=== PATIENT | male | born 1995 | race Caucasian/White ===

== ENCOUNTER 2017-05-13 08:16 | Inpatient (IN) | payer BC, OTHER ==
[~2017-05-13] VITALS: Ht 177.8 cm; Wt 74.8 kg
--- NOTE | 2017-05-14 00:30 | NUR ---
Pre admission assessment Pt seen in intake office. Pt appears mildly intoxicated upon admission but in stable condition with V/S WNL. Policies on medication disposal explained to and understood by patient. No s/s of distress noted at this time. Respirations even and unlabored. Will admit to unit. Will continue to monitor.
[2017-05-14] MEDS ORDERED: ONDANSETRON ODT 4 MG TAB.RAPDIS SL PRN (00:45)
[2017-05-14] MEDS ORDERED: LOPERAMIDE HCL 2 MG CAPSULE PO PRN ×2 (00:45)
[2017-05-14] MEDS ORDERED: IBUPROFEN 400 MG TABLET PO PRN (00:45)
[2017-05-14] MEDS ORDERED: ACETAMINOPHEN 325 MG TABLET PO PRN (00:45)
[2017-05-14] MEDS ORDERED: MAG HYDROX/AL HYDROX/SIMETH 30 ML LIQUID UDC PO PRN (00:45)
[2017-05-14] MEDS ORDERED: ONDANSETRON 4 MG/2 ML VIAL IM PRN (00:45)
[2017-05-14] MEDS ORDERED: MAGNESIUM HYDROXIDE 30 ML LIQUID UDC PO PRN (00:45)
[2017-05-14] MEDS ORDERED: diphenhydrAMINE 50 MG CAPSULE PO PRN (00:45)
[2017-05-14] MEDS ORDERED: METHOCARBAMOL 750 MG TABLET PO PRN (00:45)
[2017-05-14] MEDS ORDERED: MIRALAX 17 GM POWD.PACK PO PRN (00:45)
[2017-05-14] MEDS ORDERED: HYDROXYZINE PAMOATE 25 MG CAPSULE PO PRN (00:45)
[2017-05-14] MEDS ORDERED: DICYCLOMINE HCL 20 MG TABLET PO PRN (00:45)
[2017-05-14] MEDS ORDERED: CLONIDINE HCL 0.1 MG TABLET PO PRN (00:45)
[2017-05-14] MEDS ORDERED: BUPRENORPHINE HCL 2 MG TAB.SUBL SL PRN (00:45)
[2017-05-14 00:55] VITALS: BP 128/64
--- NOTE | 2017-05-14 00:55 | NUR ---
Admission note Pt is a 21 yo male, A+Ox4, presenting to [facility] for Opiate/Meth dependence. Pt has Allergies to Prednisone and Pseudoephedrine, is on Full code status, and on Regular diet. Pt is 5'10" in height and 165 LBS in weight. Pt has medical HX of Appendectomy, Asthma, Hep C+, Anxiety, Depression, ADD, MRSA, Ectodermal Dysplasia, intermittent explosive disorder, and Nasal blood vessel cauterization. Pt has family HX of DM for father, and Ectodermal Dysplasia from Mother. Pt has a Primary Care Provider named Casi Olguin. Pt has been using Heroin IV for 6 years (1.5 months currently), has reached a level of 1gm-1.5gm/daily, and last dose was 1gm on 05-13-17 @1899. Pt has been using Methamphetamine IV for 6 years (1.5 months currently), has reached a level of 1gm-1.5gm/daily, and last dose was 1gm on 05-13-17 @1899. Pt has no home medications. Pt has HX of previous Detox/Rehab for 21 days @ [facility] in January 2017. This was the patients last time sober. Pt states that he has not been a cigarette smoker for years now. Pt appears mildly intoxicated but in stable condition with V/S WNL. No s/s of distress noted at this time. Respirations even and unlabored. Will continue to monitor.
[2017-05-14 01:40] LABS: *AMPHETAMINE, URINE POSITIVE (NEGATIVE); *BARBITURATE, URINE NEGATIVE (NEGATIVE); *CANNABINOID, URINE POSITIVE (NEGATIVE); *COCCAINE, URINE NEGATIVE (NEGATIVE); *OPIATE, URINE POSITIVE (NEGATIVE); *PHENCYCLIDINE SCREEN,URINE NEGATIVE (NEGATIVE)
[2017-05-14 01:46] LABS: BASOPHILS # (AUTO) 0.1 K/uL (0.0-8.0); BASOPHILS % (AUTO) 1.3 % (0.0-2.0); EOSINOPHILS # (AUTO) 0.7 K/uL (0.0-0.7); HEMATOCRIT 45.2 % (40-50); HEMOGLOBIN 14.8 G/DL (14.0-18.0); LYMPHOCYTES # (AUTO) 2.9 K/UL (0.8-4.8); LYMPHOCYTES % (AUTO) 37.7 % (20.5-51.5); MEAN CORPUSCULAR HEMOGLOBIN 27.1 UUG (27.0-31.0); MEAN CORPUSCULAR HGB CONC 33 g/dL (32.0-37.0); MEAN CORPUSCULAR VOLUME 82.7 FL (82.0-92.0); MONOCYTES # (AUTO) 0.6 K/UL (0.1-1.30); MONOCYTES % (AUTO) 7.2 % (0.0-11.0); NEUTROPHILS # (AUTO) 3.5 K/UL (1.8-8.9); NEUTROPHILS % (AUTO) 44.8 % (38.5-71.5); PLATELET COUNT (AUTO) 359 K/UL (150-450); RED BLOOD CELL COUNT(AUTO) 5.47 MIL/UL (4.7-6.1); WHITE BLOOD COUNT (AUTO) 7.8 K/UL (4.0-11.2)
[2017-05-14 02:01] LABS: ETHANOL < 3 MG/DL (0-0)
[2017-05-14 02:18] LABS: ALANINE AMINOTRANSFERASE 51 U/L (16-63); ALKALINE PHOSPHATASE 65 U/L (50-136); AMYLASE 45 U/L (25-115); ASPARTATE AMINOTRANSFERASE 32 U/L (15-37); BILIRUBIN,TOTAL 0.4 mg/dL (0.2-1.0); CARBON DIOXIDE 33 mmol/L (21-32); CHLORIDE 101 mmol/L (98-107); CREATININE 0.9 mg/dL (0.6-1.3); GLUCOSE 99 mg/dL (74-106); LIPASE 111 U/L (73-393); MAGNESIUM 2.1 mg/dL (1.8-2.4); POTASSIUM 3.8 mmol/L (3.5-5.1); TOTAL PROTEIN, SERUM 7.8 g/dL (6.4-8.2); UREA NITROGEN, BLOOD 7 mg/dL (7-18)
[2017-05-14 02:29] LABS: THYROID STIMULATING HORMONE 1.255 mIU/mL (0.358-3.740)
--- NOTE | 2017-05-14 02:33 | NUR ---
PRN Maalox Pt c/o heartburn and requested for PRN Maalox. Medication given and tolerated well. Will reassess within 1 HR. Will continue to monitor.
[2017-05-14] MEDS ORDERED: MAG HYDROX/AL HYDROX/SIMETH 30 ML LIQUID UDC ONE (02:38)
--- NOTE | 2017-05-14 03:30 | NUR ---
PRN Maalox Reassessment Medication effective. Pt is resting well in bed. No s/s of ASE/distress noted at this time. Respirations even and unlabored. Will continue to monitor.
[2017-05-14 04:15] VITALS: BP 115/62
--- NOTE | 2017-05-14 06:57 | NUR ---
End of shift note Pt is a 21 yo male, A+Ox4, presenting to [facility] for Opiate/Meth dependence. Pt has Allergies to Prednisone and Pseudoephedrine, is on Full code status, and on Regular diet. Pt has HX of Appendectomy, Asthma, Hep C+, Anxiety, Depression, ADD, MRSA, Ectodermal Dysplasia, intermittent explosive disorder, and Nasal blood vessel cauterization. Pt is on PRN medications until further evaluation from MD in AM. Pt was given PRN Maalox @0233. Pt slept for a total of 4 HRS. Last COWS: 2 @0400. No s/s of distress noted at this time. Respirations even and unlabored. Will endorse to day shift nurse.
--- NOTE | 2017-05-14 07:48 | NUR ---
START OF SHIFT NOTE: Received report from night warehouse manager nurse. Pt is a 21 yo male, admitted 05-13-17 for Opiate/Meth dependence. Pt on prn meds only at this time. Pt alert and oriented X4. Color good, skin warm and dry. Respirations even and unlabored. Resting in bed. Safety precautions observed. Call light within reach. Will continue to monitor.
[2017-05-14 08:30] VITALS: BP 115/62
[2017-05-14] MEDS: MULTIVITAMINS,THERAPEUTIC TABLET PO SCH (08:41)
[2017-05-14] MEDS ORDERED: BUPRENORPHINE HCL 2 MG TAB.SUBL SL ONE (11:30)
--- NOTE | 2017-05-14 11:45 | NUR ---
Subutex 2mg sl X1 for COWS 8
--- NOTE | 2017-05-14 12:10 | NUR ---
Pt staes feels improved after Subutex 2mg X1
[2017-05-14] MEDS: BUPRENORPHINE HCL 2 MG TAB.SUBL SL SCH ×3 (12:50→21:19)
[2017-05-14 12:52] VITALS: BP 120/62
--- NOTE | 2017-05-14 12:52 | NUR ---
VSS Subutex taper started. COWS 3
--- NOTE | 2017-05-14 17:07 | NUR ---
VSS COWS 2 C/o anxiety only
[2017-05-14 17:22] VITALS: BP 104/64
--- NOTE | 2017-05-14 18:45 | NUR ---
END OF SHIFT NOTE: Report given to fast food shift lead nurse. Pt is a 21 yo male, admitted 05-13-17 for Opiate/Meth dependence. Pt placed on a 5 day Subutex taper. Tolerating well. Pt alert and oriented X4. Color good, skin warm and dry. Respirations even and unlabored. Vital signs have remained stable throughout shift . Last COWS 2 @ 1700. Safety precautions observed. Call light within reach.
--- NOTE | 2017-05-14 19:07 | NUR ---
Start of shift note Received report from day shift nurse. Pt is a 21 yo male, A+Ox4, presenting to [facility] for Opiate/Meth dependence. Pt has Allergies to Prednisone and Pseudoephedrine, is on Full code status, and on Regular diet. Pt has HX of Appendectomy, Asthma, Hep C+, Anxiety, Depression, ADD, MRSA, Ectodermal Dysplasia, intermittent explosive disorder, and Nasal blood vessel cauterization. Pt is on Fall precautions. Pt is on 5 day Subutex taper, tolerated well. No s/s of distress noted at this time. Respirations even and unlabored. Will continue to monitor.
[2017-05-14 20:50] VITALS: BP 105/63
[2017-05-14] MEDS: GABAPENTIN 300 MG CAPSULE PO SCH (21:19)
[2017-05-15 00:46] VITALS: BP 108/68
[2017-05-15 04:16] VITALS: BP 112/71
--- NOTE | 2017-05-15 07:00 | NUR ---
End of shift note Pt is a 21 yo male, A+Ox4, presenting to [facility] for Opiate/Meth dependence. Pt has Allergies to Prednisone and Pseudoephedrine, is on Full code status, and on Regular diet. Pt has HX of Appendectomy, Asthma, Hep C+, Anxiety, Depression, ADD, MRSA, Ectodermal Dysplasia, intermittent explosive disorder, and Nasal blood vessel cauterization. Pt is on 5 day Subutex taper, tolerated well. Pt slept for a total of 9 HRS. Last COWS: 2 @0400. No s/s of distress noted at this time. Respirations even and unlabored. Will endorse to day shift nurse.
[2017-05-15 07:07] LABS: HEPATITIS B SURFACE AG Negative (Negative)
--- NOTE | 2017-05-15 07:55 | NUR ---
START OF SHIFT Rcvd endorsement from ongoing nurse, client is in room,he is a/o x4, he presents with anxious mood, flat affect, he reports not sleeping well, chills, stomach cramps, and fatigue. Client denies any N/V/D or SI/HI. Scattered dry scabs at chest and back, x 1 at neck site, encouraged client to not pick at them, he verbalized understanding. Encouraged client to increase fluid intake to facilitate detox. Encourage client to attend group therapy for skills to maintain sobriety. Client is a 21 yo male admitted for withdrawal from heroin. He is on 5 day Subutex taper, tolerating well. Last COWS 2 @ 0400. He reports allergy to Prednisone, pseudoephedrine, full code, regular diet. Client had an uneventful night, he slept 9 hrs. Client denies any history of withdrawal-induced seizure. He is on seizure precautions. Call light within reach. Side rails up x2, bed locked and in low position.
[2017-05-15 08:53] VITALS: BP 116/51
[2017-05-15] MEDS: BUPRENORPHINE HCL 2 MG TAB.SUBL SL SCH ×3 (08:59→20:33)
[2017-05-15] MEDS: GABAPENTIN 300 MG CAPSULE PO SCH ×3 (08:59→20:33)
[2017-05-15] MEDS: MULTIVITAMINS,THERAPEUTIC TABLET PO SCH (08:59)
[2017-05-15] MEDS ORDERED: TUBERCULIN,PURIF.PROT.DERIV. 5 TU/0.1 ML TEST ID ONE (09:00)
--- NOTE | 2017-05-15 09:00 | NUR ---
TB test administered to L forearm, client tolerated well.
--- NOTE | 2017-05-15 10:33 | NUR ---
Client was encouraged to attend groups. He responded that he wanted to sleep but would try when he felt better.
[2017-05-15 12:45] VITALS: BP 110/78
[2017-05-15] MEDS: BACLOFEN 10 MG TABLET PO SCH ×2 (14:37→20:33)
--- NOTE | 2017-05-15 14:55 | NUR ---
Patient refused 1500 dose of baclofen, stating he felt it would make him too drowsy for dinner. Patient informed next dose time of 2100 and patient stated understanding.
[2017-05-15 16:00] VITALS: BP 93/59
--- NOTE | 2017-05-15 17:58 | NUR ---
Unable to reassess Clonidine 0.1mg, Robaxin 750mg and Motrin 600mg, client is in a catatonic state. Will continue to monitor. Addendum: 05/15/17 at 1915 by KRUNAL KENNY RN wrong client
--- NOTE | 2017-05-15 18:00 | NUR ---
Patient states sleepy with subutex dose. COWS score 2. Vitals stable.
--- NOTE | 2017-05-15 19:19 | NUR ---
END OF SHIFT Endorsed client to incoming nurse, Client is a 21 yo male admitted for withdrawal from heroin. He is on 5 day Subutex taper, tolerating well. Last COWS 2 @ 1600. He reports allergy to Prednisone, pseudoephedrine, full code, regular diet. Client had an uneventful day. Adequate PO intake 2855mL, void x 6. Client was not compliant with group therapy, d/t withdrawal symptoms. Client denies any history of withdrawal-induced seizure. He is on seizure precautions. Call light within reach. Side rails up x2, bed locked and in low position.
--- NOTE | 2017-05-15 19:45 | NUR ---
START OF SHIFT Received report from day shift nurse. Pt is lying in bed resting. He is a 21 yo male admitted to [facility] on 05/14 for opiate dependence. He is A&O and ambulatory. Allergic to pseudophedrine and prednisone, full code status, regular diet. He has a PMH of asthma, hepatitis C, ectodermal dysplasia, appendectomy, intermittent explosive disorder, ADD, anxiety, and depression. On admission pt reported using heroin IV 1-1.5 grams per day and methamphetamine 1-1.5 grams per day. 5 day subutex taper started on 05/14. He is compliant with treatment. Subutex is working well to manage withdrawal symptoms. He reports feeling tired. Fall precautions in place. Bed is down with call light in reach.
[2017-05-15 20:00] VITALS: BP 107/61
[2017-05-15] MEDS: CLONIDINE HCL 0.1 MG TABLET PO SCH (21:00)
[2017-05-16] VITALS: BP 107/61
--- NOTE | 2017-05-16 04:00 | NUR ---
0400 Vitals refused/COWS deferred Pt refused to be woken for 0400 vital signs. He is lying in bed resting with eyes closed. Respirations even and unlabored. CIWA and COWS ordered Q4HWA. Safety measures in place.
--- NOTE | 2017-05-16 07:25 | NUR ---
END OF SHIFT Report provided day shift nurse. Pt is lying in bed resting. He is a 21 yo male admitted to [facility] on 05/14 for opiate dependence. He is A&O and ambulatory. Allergies to pseudophedrine and prednisone, full code status, regular diet. He has a PMH of asthma, hepatitis C, ectodermal dysplasia, appendectomy, intermittent explosive disorder, ADD, anxiety, and depression. Upon admission pt admitted to using heroin IV 1-1.5 grams per day and methamphetamine 1-1.5 grams per day. 5 day subutex taper started on 05/14. No PRN medications administered. Last COWS was 2. He drank 950mL and slept for [address] hours[address] Fall precautions in place. Bed is down with call light in reach.
[2017-05-16 08:34] VITALS: BP 100/63
[2017-05-16] MEDS: CLONIDINE HCL 0.1 MG TABLET PO SCH ×2 (09:00→21:00)
[2017-05-16] MEDS ORDERED: BUPRENORPHINE HCL 2 MG TAB.SUBL SL SCH (09:00)
[2017-05-16] MEDS: MULTIVITAMINS,THERAPEUTIC TABLET PO SCH (09:03)
[2017-05-16] MEDS: BACLOFEN 10 MG TABLET PO SCH ×2 (09:03→14:28)
[2017-05-16] MEDS: GABAPENTIN 300 MG CAPSULE PO SCH ×2 (09:03→14:28)
[2017-05-16 12:54] VITALS: BP 104/58
[2017-05-16] MEDS: BUPRENORPHINE HCL 2 MG TAB.SUBL SL SCH ×2 (14:28→21:06)
[2017-05-16 16:55] VITALS: BP 98/58
--- NOTE | 2017-05-16 19:25 | NUR ---
END OF SHIFT Endorsed client to incoming nurse, Client is a 21 yo male admitted for withdrawal from heroin. He is on 5 day Subutex taper, tolerating well. Last COWS 5 @ 1600. He reports allergy to Prednisone, pseudoephedrine, full code, regular diet. Client had an uneventful day. Adequate PO intake 2960mL, void x 4. Client was not compliant with group therapy, d/t withdrawal symptoms. Client denies any history of withdrawal-induced seizure. He is on seizure precautions. Call light within reach. Side rails up x2, bed locked and in low position.
--- NOTE | 2017-05-16 19:35 | NUR ---
START OF SHIFT Received report from day shift nurse. Pt is lying in bed resting. Patient is a 21 year old male admitted to [facility] on 05/14/17 for opiate dependence. He is on a 5 day Subutex taper. Last COWS 5. Patient has allergy to: pseudoephedrine and prednisone, full code, regular diet. He has a PMH of asthma, hepatitis C, ectodermal dysplasia, appendectomy, intermittent explosive disorder, ADD, anxiety, and depression. Patient reports using heroin IV 1-1.5 grams per day and methamphetamine 1-1.5 grams per day. He is compliant with treatment, isolative, and in bed much of day. Denies SI or HI. Denies current depression. Fall precautions in place. Bed is in lowest locked position, with call light in reach.
[2017-05-16 20:00] VITALS: BP 113/58
[2017-05-16 20:30] VITALS: BP 98/62
--- NOTE | 2017-05-16 21:00 | NUR ---
Medication Non administered Clonidine 0.1 mg PO non administered at 2100 due to decreased BP below parameters.
[2017-05-16] MEDS: BACLOFEN 20 MG TABLET PO SCH (21:06)
[2017-05-16] MEDS: GABAPENTIN 400 MG CAPSULE PO SCH (21:06)
--- NOTE | 2017-05-17 | NUR ---
COWS DEFERRED VITAL SIGNS REFUSED PATIENT IN BED WITH EYES VCLOSED RESTING COMFORTABLY AT 0000 PATIENT REFUSED VITAL SIGN ASSESSMENT RESPIRATIONS 16, BREATHING UNLABORED AND EVEN. COWS DEFERRED FOR SLEEP.
--- NOTE | 2017-05-17 04:00 | NUR ---
COWS DEFERRED VITAL SIGNS REFUSED PATIENT IN BED WITH EYES CLOSED RESTING COMFORTABLY AT 0400 RESPIRATIONS 16, BREATHING UNLABORED AND EVEN. COWS DEFERRED FOR SLEEP. REFUSED VITAL SIGNS
--- NOTE | 2017-05-17 06:52 | NUR ---
End of shift Report given to AM nurse. Patient is a 21 year old male admitted to [facility] on 05/14/17 for opiate dependence. He is on a 5 day Subutex taper. Last COWS 6. Clonidine 0.1 mg PO non administered at 2100 due to BP below parameters on two occasions. Patient has allergies to pseudoephedrine and prednisone. He is a full code and on a regular diet. He has a PMH of asthma, hepatitis C, ectodermal dysplasia, appendectomy, intermittent explosive disorder, ADD, anxiety, and depression. Patient reports using heroin IV 1-1.5 grams per day and methamphetamine 1-1.5 grams per day. He is compliant with treatment, and active on unit ambulating ad-tyree. Patient slept a total of 10 hours. Intake 250 ML voided 0. Fall precautions in place. Bed is in lowest locked position, with call light in reach.
--- NOTE | 2017-05-17 07:27 | NUR ---
START OF SHIFT NOTE: Received report from shift commander nurse. Pt is a 21 yo male, admitted 05-13-17 for Opiate/Meth dependence. Pt is on a 5 day Subutex taper. Tolerating well. Pt alert and oriented X4. Color good, skin warm and dry. Respirations even and unlabored. Resting in bed. Safety precautions observed. Call light within reach. Will continue to monitor.
[2017-05-17 08:07] VITALS: BP 94/60
[2017-05-17] MEDS: CLONIDINE HCL 0.1 MG TABLET PO SCH ×2 (08:09→20:49)
[2017-05-17] MEDS: MULTIVITAMINS,THERAPEUTIC TABLET PO SCH (09:04)
[2017-05-17] MEDS: GABAPENTIN 400 MG CAPSULE PO SCH ×3 (09:04→20:44)
[2017-05-17] MEDS: BACLOFEN 20 MG TABLET PO SCH ×3 (09:04→20:44)
[2017-05-17] MEDS: BUPRENORPHINE HCL 2 MG TAB.SUBL SL SCH ×3 (09:05→20:44)
--- NOTE | 2017-05-17 09:21 | NUR ---
VSS COWS 2 TB test read LFA negative.
[2017-05-17 12:43] VITALS: BP 92/50
--- NOTE | 2017-05-17 15:00 | NUR ---
VSS COWS 2 Resting in bed. Encouraged to attend group.
[2017-05-17 17:02] VITALS: BP 96/58
--- NOTE | 2017-05-17 18:40 | NUR ---
END OF SHIFT NOTE: Report given to date night caregiver nurse. Pt is a 21 yo male, admitted 05-13-17 for Opiate/Meth dependence. Pt is on a 5 day Subutex taper. Tolerating well. Pt alert and oriented X4. Color good, skin warm and dry. Respirations even and unlabored. Vital signs have remained stable throughout shift. Last COWS 2 @ 1500.Resting in bed. Safety precautions observed. Call light within reach.
--- NOTE | 2017-05-17 19:32 | NUR ---
Start of Shift Report received from AM nurse. Patient is a 21 year old male admitted to [facility] on 05/14/17 for opiate dependence. He is on a 5 day Subutex taper. Last COWS 2. Vital signs stable. Patient has allergies to pseudoephedrine and prednisone. He is a full code and on a regular diet. He has a PMH of asthma, hepatitis C, ectodermal dysplasia, appendectomy, intermittent explosive disorder, ADD, anxiety, and depression. Patient reports using heroin IV 1-1.5 grams per day and methamphetamine 1-1.5 grams per day. He is compliant with treatment, isolative most of day in room. Went downstairs to eat dinner. Fall precautions in place. Bed is in lowest locked position, with call light in reach.
[2017-05-17 20:00] VITALS: BP 105/61
--- NOTE | 2017-05-17 20:53 | NUR ---
MED NON ADMINISTERED 2100 dose of Clonidine 0.1mg PO non administered due to < BP 105/61 falling below parameters for administration.
--- NOTE | 2017-05-18 | NUR ---
COWS deferred/VS refused PAtient in bed with eyes closed refused vital signs at 0000. COWS deferred for sleep. Patient resting with eyes closed, breathing even and unlabored. Respirations 16.
--- NOTE | 2017-05-18 04:09 | NUR ---
COWS deferred/VS refused PAtient in bed with eyes closed refused vital signs at 0400. COWS deferred for sleep. Patient resting with eyes closed, breathing even and unlabored. Respirations 16.
--- NOTE | 2017-05-18 06:53 | NUR ---
End of Shift Report Endorsement to AM nurse Patient is a 21 year old male admitted on 05-13-17 for opiate detox. Patient also with history of Methamphetamine abuse. Patient is on a 5 day Subutex taper. Tolerating well without noted complications. Vital signs remain stable. Patient with last COWS 4. Patients dose of clonidine at 2100 non administered due to b/p falling below parameter for administration. Patient remains isolated in his room most of shift sleeping on/off. Did get up x 2 on unit for snacks. Denies SI or HI Past psychiatric history of Anxiety, depression, ADD, and intermittent explosive D/O. His affect is flat,he is guarded and not forthcoming with information. Pleasant upon approach. Total intake for shift 1250 ml out put 3 voids Total sleep 9 [address] measures [address]. Call light within reach.
--- NOTE | 2017-05-18 07:35 | NUR ---
START OF SHIFT NOTE: Received report from night stocker nurse. Pt is a 21 yo male, admitted 05-13-17 for Opiate/Meth dependence. Pt is on a 5 day Subutex taper. Tolerating well. Pt alert and oriented X4. Color good, skin warm and dry. Respirations even and unlabored. Resting in bed. Safety precautions observed. Call light within reach. Will continue to monitor.
[2017-05-18 08:34] VITALS: BP 101/60
[2017-05-18] MEDS: CLONIDINE HCL 0.1 MG TABLET PO SCH ×2 (08:42→20:39)
[2017-05-18] MEDS: BUPRENORPHINE HCL 2 MG TAB.SUBL SL SCH ×2 (08:56→20:36)
[2017-05-18] MEDS: GABAPENTIN 400 MG CAPSULE PO SCH ×3 (08:56→20:36)
[2017-05-18] MEDS: BACLOFEN 20 MG TABLET PO SCH ×3 (08:56→20:36)
[2017-05-18] MEDS: MULTIVITAMINS,THERAPEUTIC TABLET PO SCH (08:56)
[2017-05-18] MEDS ORDERED: BUPRENORPHINE HCL 2 MG TAB.SUBL SL SCH (09:00)
[2017-05-18 12:23] VITALS: BP 98/57
[2017-05-18 17:27] VITALS: BP 98/57
--- NOTE | 2017-05-18 18:41 | NUR ---
END OF SHIFT NOTE: Report given to assistant casino shift manager nurse. Pt is a 21 yo male, admitted 05-13-17 for Opiate/Meth dependence. Pt is on a 5 day Subutex taper. Tolerating well. Pt alert and oriented X4. Color good, skin warm and dry. Respirations even and unlabored. Vital signs have remained stable throughout shift. Last COWS 0 @ 1500. Resting in bed. Safety precautions observed. Call light within reach.
--- NOTE | 2017-05-18 19:30 | NUR ---
Start of Shift: Received patient in bed, awake, alert and oriented x4. Pleasant upon approach. Good eye contact. Calm and cooperative with care. Speech is clear, normal tone and able to make his needs known. Denies SI/HI/AVH. Patient admitted for opiate/meth dependence. On a 5 day Subutex taper. Tolerating well. Will continue to monitor behavior and medication effectiveness while MD titrate medication.
[2017-05-18 20:41] VITALS: BP 102/62
--- NOTE | 2017-05-19 00:57 | NUR ---
Patient asleep. Respiration even and unlabored. Unable to assessed COWS at this time. Addendum: 05/19/17 at 0058 by ARMAND LA RN Amended: Links added.
[2017-05-19 00:58] VITALS: BP 96/48
--- NOTE | 2017-05-19 04:26 | NUR ---
Patient asleep. Respiration even and unlabored. Refused COWS at this time. Addendum: 05/19/17 at 0428 by ARMAND LA RN Amended: Links added.
[2017-05-19 04:34] VITALS: BP 94/52
--- NOTE | 2017-05-19 06:23 | NUR ---
End of shift Notes: Patient remained calm and and cooperative. However, still isolative to self. Participated in ADL's Alert and oriented x4. Slept 10 hours. Compliant with medication and tolerated well. Remained free from injury. Encouraged to verbalize feelings and concerns. No behavior issues. Denies SI/HI/AVH.
--- NOTE | 2017-05-19 07:55 | NUR ---
START OF SHIFT NOTE Received report from weight shifter nurse, 21 year old male admitted for Opiate/Meth dependence. Pt cont on a 5 day Subutex taper. Pt did not receive any PRN medication per night nurse, last COWS1, slept for 10 hours. Received pt alert awake oriented x4 in stable condition. Skin warm and dry, Respirations even and unlabored. All Safety measures in place, Call light within reach. Will continue to monitor.
[2017-05-19 08:00] VITALS: BP 102/64
[2017-05-19] MEDS: GABAPENTIN 400 MG CAPSULE PO SCH ×3 (08:43→21:12)
[2017-05-19] MEDS: MULTIVITAMINS,THERAPEUTIC TABLET PO SCH (08:44)
[2017-05-19] MEDS: BACLOFEN 20 MG TABLET PO SCH ×3 (08:44→21:11)
[2017-05-19] MEDS: CLONIDINE HCL 0.1 MG TABLET PO SCH ×2 (08:45→21:11)
[2017-05-19] MEDS ORDERED: BUPRENORPHINE HCL 2 MG TAB.SUBL SL SCH (09:00)
[2017-05-19 12:00] VITALS: BP 104/60
[2017-05-19 16:00] VITALS: BP 103/56
[2017-05-19] MEDS ORDERED: BACL20TA PO (16:00)
[2017-05-19] MEDS ORDERED: DICY20TA28 PO (16:00)
[2017-05-19] MEDS ORDERED: GABA-536 PO (16:00)
[2017-05-19] MEDS ORDERED: HYDR-3895 PO (16:00)
[2017-05-19] MEDS ORDERED: DIPH50CA37 PO (16:00)
[2017-05-19] MEDS ORDERED: CLON0.1T14 PO (16:00)
[2017-05-19] MEDS ORDERED: IBUP-1953 PO (16:04)
--- NOTE | 2017-05-19 18:59 | NUR ---
END OF SHIFT NOTE Pt completed his Subutex taper tolerated well. Pt attended some groups and activities. Vital signs WNL. Skin intact warm and dry to touch. Pt scheduled for discharge in AM. Picture taken and placed in the chart. Pt remained complaint with plan of care. Encourage PO fluids as tolerated. All safety measures in place, Call light within reach. Pt endorsed to night nurse in stable condition.
[2017-05-19 20:00] VITALS: BP 136/61
--- NOTE | 2017-05-19 20:00 | NUR ---
1999 Patient received awake, alert and sitting up on his bed. Patient responds to nurse's greeting and introduction with eye contact and slightly flat " Hi". Patient states that he has just returned from [employer] [facility] in recreation room. Patient states that he has been regularly attending [employer] groups and eating his Regular diet meal trays and drinking various fluids ad tyree with no gastric issues so far. Patient states further that he is being discharged tomorrow and may not be able to sleep well tonight. Patient informed that PRN sleep medication is available for him, whenever he asks for it. Patient states, " Okay". Patient denies any pain or other discomforts presently and he voices no requests for anything. Vital signs are: [id number] 136/61, O2 Sat 100%, COWS 2. Patient was admitted on 05/13/17 for Heroin and Methamphetamine withdrawal and he has completed his 5-Day Subutex medication taper at this time. Patient is cooperative and verbally appropriate when interacting with nurse, however overall mood/affect is somewhat both flat and slightly anxious. Bed is locked and in lowest position, bed rails are up X 1 and call light within patient's easy reach.
--- NOTE | 2017-05-19 21:22 | NUR ---
PRN MEDICATION: Prn Benadryl 50 mg p.o. given per request for sleep medication and Prn Vistaril 50 mg p.o. given per c/o anxiety.
--- NOTE | 2017-05-19 22:22 | NUR ---
REASSESSMENT PRN MEDICATION: Patient is sleeping soundly with eyes closed and respirations deep, even, unlabored at 12.
--- NOTE | 2017-05-20 | NUR ---
Patient refused to be awakened for V/S to be done at this time.
--- NOTE | 2017-05-20 04:00 | NUR ---
Patient refused to be awakened for V/S to be done at this time.
--- NOTE | 2017-05-20 06:30 | NUR ---
0630 Patient slept a total of 7.25 hours and he had 3 voids and no stools. Total intake was 1,510 ml p.o. Prn medications given noted separately per floor protocol. V/SS afebrile, last COWS was 2 at 1999. Patient is presently resting comfortably in stable condition with eyes closed and respirations even, unlabored at 12.
--- NOTE | 2017-05-20 07:30 | NUR ---
START OF SHIFT NOTE Received report from overnight houseperson nurse, 21 year old male admitted for Opiate/Meth dependence. Pt completed his 5 day Subutex taper. Pt received PRN Benadryl/Vistaril effective per night nurse, last COWS2, slept for 7 hours. Received pt alert awake oriented x4 in stable condition. Pt scheduled for discharge today. Skin warm and dry, Respirations even and unlabored. All Safety measures in place, Call light within reach. Will continue to monitor.
[2017-05-20] MEDS: GABAPENTIN 400 MG CAPSULE PO SCH (08:18)
[2017-05-20] MEDS: BACLOFEN 20 MG TABLET PO SCH (08:18)
[2017-05-20] MEDS: MULTIVITAMINS,THERAPEUTIC TABLET PO SCH (08:18)
[2017-05-20 08:19] VITALS: BP 120/71
[2017-05-20] MEDS: CLONIDINE HCL 0.1 MG TABLET PO SCH (08:19)
--- NOTE | 2017-05-20 09:30 | NUR ---
DISCHARGE NOTE Pt is alert oriented x4 in stable condition. vital signs WNl. Skin intact warm and dry to touch. Pt denies any SI/HI. Last COWS-0. All discharge paper work completed dated and signed. Pt educated about discharge instructions with good verbal understanding. Pt was discharged from [facility] on 05/20/17 at 0930. Pt left with all of his belongings, prescription, pt did not bring any medications with him to the unit. has been contracted and notified of pt's discharge.
== END 2017-05-20 09:30 | DRG 895 ==
LOC: SRC 23:30
PROVIDERS: ADMIT Internal Medicine; ATTEND Internal Medicine
PROC: HZ2ZZZZ Detoxification Services for Substance Abuse Treatment (ICD-10-PCS; principal; 2017-05-13)
PROC: HZ51ZZZ Individual Psychotherapy for Substance Abuse Treatment, Behavioral (ICD-10-PCS; 2017-05-15)
DX: F11.23 Opioid dependence with withdrawal (principal); E87.3 Alkalosis; F32.9 Major depressive disorder, single episode, unspecified; B19.20 Unspecified viral hepatitis C without hepatic coma; F41.9 Anxiety disorder, unspecified; F90.9 Attention-deficit hyperactivity disorder, unspecified type; Z83.3 Family history of diabetes mellitus; E86.0 Dehydration; F15.23 Other stimulant dependence with withdrawal; F12.90 Cannabis use, unspecified, uncomplicated
CPT/HCPCS: 36415; 70030-TC; 80307; 80324; 80349; 80361; 83690; 83735; 84443; 85025; 86580; 86592; 86705; 86803; 87340; 87806; G0480; Q0163